=== PATIENT | male | born 1945 | race Two or more races ===

== ENCOUNTER 2022-06-30 11:40 | Emergency (ER) | payer BC, OTHER ==
[~2022-06-30] VITALS: Ht 167.6 cm; Wt 80.0 kg
[2022-06-30 13:09] LABS: Basophils # (auto) 0 10 ^3/uL (0-0.2); Basophils % (auto) 0.4 % (0.0-2.0); Eosinophils # (auto) 0.4 10 ^3/uL (0-0.8); Eosinophils % (auto) 5.5 % (0.0-7.0); Hematocrit 41.2 % (41.0-53.0); Hemoglobin 13.9 g/dL (13.5-17.5); Lymphocytes % (auto) 27.9 % (10.0-50.0); Mean Corpuscular Hemoglobin 31.4 pg (28.0-32.0); Mean Corpuscular Hgb Conc. 33.8 g/dL (32.0-36.0); Mean Corpuscular Volume 92.9 fL (80.0-100.0); Monocytes # (auto) 0.5 10 ^3/uL (0-1.3); Monocytes % (auto) 7.6 % (0.0-12.0); Neutrophils # (auto) 4.2 10 ^3/uL (1.6-8.6); Neutrophils % (auto) 58.6 % (37.0-80.0); Nucleated Red Blood Cells % 0.2 %; Red Blood Cells 4.43 10^6/uL (4.5-5.90); White Blood Cell 7.2 10^3/uL (4.4-10.8)
[2022-06-30 13:22] LABS: Potassium 4.5 mmol/L (3.5-5.1)
[2022-06-30 13:29] LABS: Albumin 3.5 g/dL (3.4-5.0); BUN/Creatinine Ratio 17.8 (10.0-20.0); Bilirubin, Total 0.4 mg/dL (0.2-1.0); Calcium 8.8 mg/dL (8.5-10.1); Total Protein 6.6 g/dL (6.4-8.2)
[2022-06-30 15:41] LABS: Urine Bacteria NONE SEEN /hpf (None Seen); Urine Blood Negative /uL (Negative); Urine Mucus FEW (None Seen); Urine Specific Gravity 1.027 (1.001-1.035); Urine WBC <1 /hpf (0 - 3)
[2022-06-30] MEDS ORDERED: BENZ100C19 PO (16:16)
[2022-06-30] MEDS ORDERED: LORA10CA7 PO (16:16)
[2022-06-30 16:29] VITALS: BP 140/58
== END 2022-06-30 16:30 | disposition home or self-care (01) ==
LOC: ER 11:40
DX: J06.9 Acute upper respiratory infection, unspecified (principal); B97.89 Other viral agents as the cause of diseases classified elsewhere; E11.9 Type 2 diabetes mellitus without complications; E78.5 Hyperlipidemia, unspecified; Z20.822 Contact with and (suspected) exposure to COVID-19
CPT/HCPCS: 36415; 71046; 80053; 81001; 83880; 84484; 85025; 85379; 87070; 87426; 87880

== ENCOUNTER → 2022-11-28 | Outpatient (CLI) | payer BC ==
[~2022-11-28] MED LIST: BENZ100C19 PO; LORA10CA PO
[2022-11-28 08:17] LABS: Basophils # (auto) 0 10 ^3/uL (0-0.2); Basophils % (auto) 0.7 % (0.0-2.0); Eosinophils # (auto) 0.8 10 ^3/uL (0-0.8); Eosinophils % (auto) 14.2 % (0.0-7.0); Hematocrit 43.4 % (41.0-53.0); Hemoglobin 14.7 g/dL (13.5-17.5); Lymphocytes # (auto) 2.2 10 ^3/uL (0.4-5.4); Lymphocytes % (auto) 36.3 % (10.0-50.0); Mean Corpuscular Hemoglobin 31.6 pg (28.0-32.0); Mean Corpuscular Hgb Conc. 33.9 g/dL (32.0-36.0); Mean Corpuscular Volume 93.2 fL (80.0-100.0); Monocytes # (auto) 0.4 10 ^3/uL (0-1.3); Neutrophils # (auto) 2.5 10 ^3/uL (1.6-8.6); Neutrophils % (auto) 41.8 % (37.0-80.0); Nucleated Red Blood Cells % 0.1 %; Red Blood Cells 4.65 10^6/uL (4.5-5.90); Red Cell Distribution Width 14.1 % (11.8-14.3)
[2022-11-28 08:45] LABS: Alanine Aminotransferase 36 U/L (7-40); Albumin 4.5 g/dL (3.2-4.8); Alkaline Phosphatase 72 U/L (46-116); Anion Gap 5 (5-15); Aspartate Aminotransferase 33 U/L (13-40); BUN/Creatinine Ratio 14.3 (10.0-20.0); Blood Urea Nitrogen 15 mg/dL (9-23); Calcium 9.8 mg/dL (8.5-10.1); Carbon Dioxide 28 mmol/L (20-30); Chloride 109 mmol/L (98-107); Glucose 133 mg/dL (74-106); LDL Cholesterol 71 mg/dL (< 100); Potassium 4.4 mmol/L (3.5-5.1); Sodium 142 mmol/L (136-145); Triglycerides 107 mg/dL (< 150)
[2022-11-28 08:46] LABS: Bilirubin, Total 1.2 mg/dL (0.2-1.0); Cholesterol 139 mg/dL (< 200); HDL Cholesterol 45 mg/dL (40-59); Total Protein 7.5 g/dL (5.7-8.2)
[2022-11-28 10:27] LABS: Free T4 (Free Thyroxine) 0.98 ng/dL (0.89-1.76)
[2022-11-28 10:34] LABS: Prostate Specific Antigen 0.26 ng/mL (0.0-4.0)
== END | disposition home or self-care (01) ==
LOC: LAB 08:04
PROVIDERS: ATTEND Internal Medicine
DX: Z00.01 Encounter for general adult medical examination with abnormal findings (principal); Z12.5 Encounter for screening for malignant neoplasm of prostate; R73.03 Prediabetes; E78.5 Hyperlipidemia, unspecified; E55.9 Vitamin D deficiency, unspecified
CPT/HCPCS: 36415; 80053; 80061; 82306; 84153; 84439; 84443; 85025

== ENCOUNTER → 2022-12-08 | Outpatient (CLI) | payer BC | END | disposition home or self-care (01) | LOC: LAB 14:08 | PROVIDERS: ATTEND Internal Medicine | DX: R73.03 Prediabetes (principal) | CPT/HCPCS: 36415; 83036 ==

== ENCOUNTER → 2023-02-10 | Outpatient (CLI) | payer BC | END | disposition home or self-care (01) | LOC: LAB 10:30 | PROVIDERS: ATTEND Family Medicine | DX: L82.1 Other seborrheic keratosis (principal) | CPT/HCPCS: 88302 ==

== ENCOUNTER → 2023-04-21 | Outpatient (CLI) | payer BC | END | disposition home or self-care (01) | LOC: XYW 08:30 | PROVIDERS: ATTEND Student in an Organized Health Care Education/Training Program | DX: I51.89 Other ill-defined heart diseases (principal); R06.02 Shortness of breath | CPT/HCPCS: 93306 ==

== ENCOUNTER → 2023-05-15 | Outpatient (CLI) | payer BC ==
[~2023-05-15] VITALS: Ht 167.6 cm; Wt 84.4 kg
[2023-05-15] MEDS: ADENOSINE 71 MG in GIVE UN-DILUTED 0 ML IV ONE (14:35)
== END | disposition home or self-care (01) ==
LOC: XYW 13:28
PROVIDERS: ATTEND Student in an Organized Health Care Education/Training Program
DX: R06.02 Shortness of breath (principal); R07.89 Other chest pain; E78.5 Hyperlipidemia, unspecified
CPT/HCPCS: 78452; 93017; A9500; J0153

== ENCOUNTER 2023-06-13 10:52 | Emergency (ER) | payer BC ==
[~2023-06-13] VITALS: Ht 167.6 cm; Wt 84.9 kg
[2023-06-13 14:11] LABS: Basophils # (auto) 0 10 ^3/uL (0-0.2); Basophils % (auto) 0.6 % (0.0-2.0); Eosinophils # (auto) 0.4 10 ^3/uL (0-0.8); Eosinophils % (auto) 6.1 % (0.0-7.0); Hematocrit 41.8 % (41.0-53.0); Mean Corpuscular Hemoglobin 31.9 pg (28.0-32.0); Mean Corpuscular Hgb Conc. 33.5 g/dL (32.0-36.0); Monocytes # (auto) 0.4 10 ^3/uL (0-1.3); Monocytes % (auto) 6.8 % (0.0-12.0); Neutrophils % (auto) 51.5 % (37.0-80.0); Nucleated Red Blood Cells % 0.3 %; Red Blood Cells 4.39 10^6/uL (4.5-5.90); Red Cell Distribution Width 14.1 % (11.8-14.3); White Blood Cell 5.8 10^3/uL (4.4-10.8)
[2023-06-13 14:26] LABS: Alanine Aminotransferase 22 U/L (7-40); Albumin 4.3 g/dL (3.2-4.8); Alkaline Phosphatase 75 U/L (46-116); Anion Gap 6 (5-15); Aspartate Aminotransferase 25 U/L (13-40); BUN/Creatinine Ratio 25.3 (10.0-20.0); Blood Urea Nitrogen 25 mg/dL (9-23); Calcium 9.4 mg/dL (8.5-10.1); Carbon Dioxide 25 mmol/L (20-30); Chloride 108 mmol/L (98-107); Glucose 102 mg/dL (74-106); Potassium 4.9 mmol/L (3.5-5.1); Sodium 139 mmol/L (136-145)
[2023-06-13 14:27] LABS: Bilirubin, Total 0.8 mg/dL (0.2-1.0)
[2023-06-13] MEDS: IOHEXOL 350 MG/ML 100ML IJ ONE (18:48)
[2023-06-13] MEDS ORDERED: ACET500T58 PO (19:06)
[2023-06-13] MEDS ORDERED: DOXY100C4 PO (19:50)
[2023-06-13 19:53] VITALS: BP 146/79; PULSE 67; RESP 16; TEMP 97.6; O2SAT 98
== END 2023-06-13 19:53 | disposition home or self-care (01) ==
LOC: ER 10:52
DX: L03.116 Cellulitis of left lower limb (principal); E11.9 Type 2 diabetes mellitus without complications; E78.5 Hyperlipidemia, unspecified; Z79.899 Other long term (current) drug therapy
CPT/HCPCS: 36415; 71045; 71275; 80053; 83605; 84484; 85025; 85379; 87040; 93970; 99285; Q9967

== ENCOUNTER 2023-07-07 14:24 | Inpatient (IN) | payer BC ==
[~2023-07-07] VITALS: Ht 167.6 cm; Wt 86.1 kg
[~2023-07-07 14:24] MED LIST changes: +ACET500T58 PO; +DOXY100C4 PO
[2023-07-07 15:01] LABS: Basophils # (auto) 0 10 ^3/uL (0-0.2); Basophils % (auto) 0.2 % (0.0-2.0); Eosinophils # (auto) 0.2 10 ^3/uL (0-0.8); Eosinophils % (auto) 3.5 % (0.0-7.0); Hematocrit 36.8 % (41.0-53.0); Hemoglobin 12.2 g/dL (13.5-17.5); Lymphocytes # (auto) 1.3 10 ^3/uL (0.4-5.4); Lymphocytes % (auto) 24.5 % (10.0-50.0); Mean Corpuscular Hemoglobin 30.9 pg (28.0-32.0); Mean Corpuscular Hgb Conc. 33.3 g/dL (32.0-36.0); Mean Corpuscular Volume 92.8 fL (80.0-100.0); Monocytes # (auto) 0.5 10 ^3/uL (0-1.3); Monocytes % (auto) 9.6 % (0.0-12.0); Neutrophils # (auto) 3.4 10 ^3/uL (1.6-8.6); Neutrophils % (auto) 62.2 % (37.0-80.0); Nucleated Red Blood Cells % 0.1 %; Red Blood Cells 3.96 10^6/uL (4.5-5.90); Red Cell Distribution Width 13.9 % (11.8-14.3); White Blood Cell 5.4 10^3/uL (4.4-10.8)
[2023-07-07 15:15] VITALS: PULSE 50; RESP 15; O2SAT 96
[2023-07-07 15:19] LABS: Alanine Aminotransferase 24 U/L (7-40); Albumin 3.3 g/dL (3.2-4.8); Alkaline Phosphatase 67 U/L (46-116); Anion Gap 7 (5-15); Aspartate Aminotransferase 20 U/L (13-40); BUN/Creatinine Ratio 15.4 (10.0-20.0); Bilirubin, Total 0.7 mg/dL (0.2-1.0); Blood Urea Nitrogen 21 mg/dL (9-23); Calcium 8.8 mg/dL (8.7-10.4); Carbon Dioxide 26 mmol/L (20-30); Chloride 112 mmol/L (98-107); Glucose 145 mg/dL (74-106); Lipase 43 U/L (12-53); Potassium 4.1 mmol/L (3.5-5.1); Sodium 145 mmol/L (136-145); Total Protein 5.6 g/dL (5.7-8.2)
[2023-07-07] MEDS ORDERED: HYDROcodone-ACET 5/325MG TAB PO PRN (23:45)
[2023-07-07] MEDS ORDERED: MORPHINE SULFATE INJ 2 MG/ml SYRG IV PRN (23:45)
[2023-07-07] MEDS ORDERED: DOCUSATE SOD 100 MG CAP PO PRN (23:45)
[2023-07-07] MEDS ORDERED: DEXTROSE (50%) 50ML SYRG IV PRN (23:45)
[2023-07-07] MEDS ORDERED: NITROGLYCERIN 0.4 MG SL TAB SL PRN (23:45)
[2023-07-07] MEDS ORDERED: ONDANSETRON HCL 4 MG/2 ML VIAL IV PRN (23:45)
[2023-07-08] VITALS (8 sets, daily range): BP systolic 104–150; BP diastolic 54–84; PULSE 45–68; RESP 16–20; TEMP 97.2–98.6; O2SAT 95–98
[2023-07-08 02:47] LABS: Urine Bacteria None Seen /hpf (None Seen)
[2023-07-08 03:08] LABS: Urine Blood Negative /uL (Negative); Urine Clarity Clear (Clear); Urine Color Yellow (Yellow); Urine Hyaline Cast FEW /lpf (0 - 2); Urine Mucus FEW (None Seen); Urine Protein, UAD TRACE (Negative); Urine Specific Gravity 1.024 (1.001-1.035); Urine Urobilinogen Normal (Negative); Urine WBC 1 /hpf (0 - 3); Urine pH 5.5 (5.0-9.0)
[2023-07-08] MEDS: ACCU-CHEK COMFORT CURVE STRIP VI SCH (05:48)
[2023-07-08] MEDS: SODIUM CHLOR 0.9% PF (SALINE LOCK) 10ML VIAL/SYR IV SCH (05:50)
[2023-07-08] MEDS: InsuLIN REG 1unit/0.01ml Soln (100units/ml) SC SCH ×2 (05:51→20:44)
[2023-07-08 08:54] LABS: Basophils # (auto) 0 10 ^3/uL (0-0.2); Basophils % (auto) 0.5 % (0.0-2.0); Eosinophils # (auto) 0.2 10 ^3/uL (0-0.8); Hematocrit 39.1 % (41.0-53.0); Lymphocytes # (auto) 1.8 10 ^3/uL (0.4-5.4); Lymphocytes % (auto) 29.2 % (10.0-50.0); Mean Corpuscular Hemoglobin 31.1 pg (28.0-32.0); Mean Corpuscular Hgb Conc. 33.2 g/dL (32.0-36.0); Mean Corpuscular Volume 93.8 fL (80.0-100.0); Monocytes # (auto) 0.5 10 ^3/uL (0-1.3); Monocytes % (auto) 7.9 % (0.0-12.0); Neutrophils # (auto) 3.6 10 ^3/uL (1.6-8.6); Neutrophils % (auto) 59.4 % (37.0-80.0); Red Blood Cells 4.17 10^6/uL (4.5-5.90); Red Cell Distribution Width 13.9 % (11.8-14.3); White Blood Cell 6.1 10^3/uL (4.4-10.8)
[2023-07-08 09:12] LABS: Alanine Aminotransferase 17 U/L (7-40); Alkaline Phosphatase 74 U/L (46-116); Anion Gap 5 (5-15); Aspartate Aminotransferase 16 U/L (13-40); BUN/Creatinine Ratio 14.2 (10.0-20.0); Blood Urea Nitrogen 15 mg/dL (9-23); Calcium 9.6 mg/dL (8.5-10.1); Carbon Dioxide 28 mmol/L (20-30); Chloride 109 mmol/L (98-107); Glucose 137 mg/dL (74-106); Potassium 4.2 mmol/L (3.5-5.1); Sodium 142 mmol/L (136-145)
[2023-07-08 09:13] LABS: Albumin 3.9 g/dL (3.2-4.8); Total Protein 6.4 g/dL (5.7-8.2)
[2023-07-08] MEDS: ASPirin 81 mg TAB PO SCH (09:23)
[2023-07-08 11:25] LABS: Magnesium 1.7 mg/dL (1.6-2.6)
[2023-07-08] MEDS: ACETAMINOPHEN 325 MG TAB PO PRN (13:03)
[2023-07-08] MEDS: ATORVASTATIN 20 MG TAB PO SCH (20:32)
[2023-07-08] MEDS: MAGNESIUM SULFATE 1GM/100ML 100 ML IV ONE (20:38)
[2023-07-09] VITALS (7 sets, daily range): BP systolic 101–144; BP diastolic 60–79; PULSE 50–81; RESP 16–20; TEMP 97.8–98.7; O2SAT 94–96
[2023-07-09] MEDS: ENOXAPARIN SOD 40 MG/0.4 ML SYRINGE SC SCH (09:41)
[2023-07-10] VITALS (11 sets, daily range): BP systolic 0–149; BP diastolic 60–72; PULSE 20–64; RESP 15–18; TEMP 97.3–98.3; O2SAT 94–95
[2023-07-10 06:50] LABS: Basophils # (auto) 0 10 ^3/uL (0-0.2); Basophils % (auto) 0.6 % (0.0-2.0); Eosinophils # (auto) 0.3 10 ^3/uL (0-0.8); Eosinophils % (auto) 4.9 % (0.0-7.0); Hematocrit 38.8 % (41.0-53.0); Lymphocytes # (auto) 2.5 10 ^3/uL (0.4-5.4); Lymphocytes % (auto) 36.8 % (10.0-50.0); Mean Corpuscular Hemoglobin 31.7 pg (28.0-32.0); Mean Corpuscular Hgb Conc. 33.5 g/dL (32.0-36.0); Mean Corpuscular Volume 94.6 fL (80.0-100.0); Monocytes # (auto) 0.6 10 ^3/uL (0-1.3); Monocytes % (auto) 8.5 % (0.0-12.0); Neutrophils # (auto) 3.4 10 ^3/uL (1.6-8.6); Neutrophils % (auto) 49.2 % (37.0-80.0); Nucleated Red Blood Cells % 0.5 %; White Blood Cell 6.9 10^3/uL (4.4-10.8)
[2023-07-10 07:22] LABS: INR 1.06 (0.9-1.15); Prothrombin Time 11.2 sec (9.3-11.8)
[2023-07-10 07:36] LABS: Chloride 108 mmol/L (98-107); Potassium 4.4 mmol/L (3.5-5.1); Sodium 141 mmol/L (136-145)
[2023-07-10 07:37] LABS: Anion Gap 7 (5-15); Calcium 9.5 mg/dL (8.5-10.1); Carbon Dioxide 26 mmol/L (20-30)
[2023-07-10 07:42] LABS: BUN/Creatinine Ratio 15.7 (10.0-20.0); Blood Urea Nitrogen 16 mg/dL (9-23); Glucose 107 mg/dL (74-106)
[2023-07-10] MEDS: LIDOCAINE 2%HCL (LOCAL ANESTH.) INJ 20ML MDV ONE ×2 (14:53→15:34)
[2023-07-10] MEDS: VERAPAMIL 2.5MG/ML INJ 2ML VIAL IV ONE (15:33)
[2023-07-10] MEDS: ANGIOMAX 250 MG VIAL IV ONE (15:33)
[2023-07-10] MEDS: SODIUM CHL 0.9% 0 ML ONE (15:33)
[2023-07-10] MEDS: MIDAZOLAM HCL 2MG/2ML 2ml VIAL (1mg/ml) ONE (15:33)
[2023-07-10] MEDS: fentaNYL CITRATE 100 MCG/2 ML VL ONE (15:33)
[2023-07-10 18:14] LABS: Basophils # (auto) 0 10 ^3/uL (0-0.2); Basophils % (auto) 0.3 % (0.0-2.0); Eosinophils # (auto) 0.2 10 ^3/uL (0-0.8); Hematocrit 40.6 % (41.0-53.0); Hemoglobin 13.4 g/dL (13.5-17.5); Lymphocytes # (auto) 2.1 10 ^3/uL (0.4-5.4); Lymphocytes % (auto) 29.9 % (10.0-50.0); Mean Corpuscular Hemoglobin 30.9 pg (28.0-32.0); Mean Corpuscular Volume 93.7 fL (80.0-100.0); Monocytes # (auto) 0.6 10 ^3/uL (0-1.3); Monocytes % (auto) 8.7 % (0.0-12.0); Neutrophils # (auto) 4.1 10 ^3/uL (1.6-8.6); Neutrophils % (auto) 58.1 % (37.0-80.0); Nucleated Red Blood Cells % 0.1 %; Red Blood Cells 4.33 10^6/uL (4.5-5.90); Red Cell Distribution Width 13.9 % (11.8-14.3); White Blood Cell 7.1 10^3/uL (4.4-10.8)
[2023-07-10] MEDS: HEPARIN DRIP/D5W 100UNITS/ML 250 ML IV SCH (18:17)
[2023-07-10 18:45] LABS: INR 1.07 (0.9-1.15); Partial Thromboplastin Time 26.2 SEC (24.5-34.5); Prothrombin Time 11.3 sec (9.3-11.8)
[2023-07-10] MEDS: SODIUM CHLORIDE 0.9% 1,000 ML IV SCH (20:22)
[2023-07-11] VITALS (7 sets, daily range): BP systolic 108–142; BP diastolic 60–75; PULSE 0–56; RESP 16; TEMP 97.1–98.8; O2SAT 95–100
[2023-07-11 00:49] LABS: INR 1.11 (0.9-1.15); Partial Thromboplastin Time 51.1 SEC (24.5-34.5); Prothrombin Time 11.7 sec (9.3-11.8)
[2023-07-11 07:07] LABS: INR 1.12 (0.9-1.15); Partial Thromboplastin Time 65.5 SEC (24.5-34.5); Prothrombin Time 11.8 sec (9.3-11.8)
[2023-07-11 13:23] LABS: INR 1.11 (0.9-1.15); Prothrombin Time 11.7 sec (9.3-11.8)
[2023-07-11 13:34] LABS: Partial Thromboplastin Time 79.9 SEC (24.5-34.5)
[2023-07-11] MEDS ORDERED: CLOP75TA28 PO (16:32)
[2023-07-11] MEDS ORDERED: ASPI-325 PO (16:32)
[2023-07-11] MEDS ORDERED: ATOR20TA50 PO (16:33)
[2023-07-11] MEDS ORDERED: LISI-275 PO (16:33)
[2023-07-11] MEDS: HEPARIN DRIP/D5W 100UNITS/ML 250 ML IV SCH (16:34)
== END 2023-07-11 18:34 | disposition home or self-care (01) | DRG 286 ==
LOC: EDBD 14:24 → ER 14:24 → TELE 23:44 → TELE-WESTW 07-08 02:24
PROVIDERS: ADMIT Internal Medicine; ATTEND Internal Medicine
PROC: 4A023N7 Measurement of Cardiac Sampling and Pressure, Left Heart, Percutaneous Approach (ICD-10-PCS; principal; 2023-07-10)
PROC: B2111ZZ Fluoroscopy of Multiple Coronary Arteries using Low Osmolar Contrast (ICD-10-PCS; 2023-07-10)
DX: R00.1 Bradycardia, unspecified (principal); G93.41 Metabolic encephalopathy; I95.1 Orthostatic hypotension; E78.5 Hyperlipidemia, unspecified; K21.9 Gastro-esophageal reflux disease without esophagitis; E11.9 Type 2 diabetes mellitus without complications; I25.10 Atherosclerotic heart disease of native coronary artery without angina pectoris; Z82.49 Family history of ischemic heart disease and other diseases of the circulatory system; Z82.3 Family history of stroke; Z79.4 Long term (current) use of insulin; Z79.899 Other long term (current) drug therapy
CPT/HCPCS: 36415; 70450; 71045; 80048; 80053; 80061; 81001; 82962; 83036; 83605; 83690; 83735; 83880; 84443; 84484; 85025; 85610; 85730; 86850; 86900; 86901; 93005; 93306; 96365; 99152; G0378; J1815; J2250

== ENCOUNTER → 2023-07-13 | Outpatient (CLI) | payer BC ==
[~2023-07-13] MED LIST changes: -ACET500T58 PO; +ASPI-325 PO; +ATOR20TA50 PO; -BENZ100C19 PO; +CLOP75TA28 PO; -DOXY100C4 PO; +LISI-275 PO; -LORA10CA PO
== END | disposition home or self-care (01) ==
LOC: LAB 07:41
PROVIDERS: ATTEND Internal Medicine
DX: R55 Syncope and collapse (principal); E27.40 Unspecified adrenocortical insufficiency
CPT/HCPCS: 82533

== ENCOUNTER → 2023-09-12 | Outpatient (CLI) | payer BC ==
[2023-09-12 08:23] LABS: Urine Bacteria None Seen /hpf (None Seen)
[2023-09-12 09:05] LABS: Urine Blood Negative /uL (Negative); Urine Clarity Clear (Clear); Urine Color Yellow (Yellow); Urine Hyaline Cast MANY /lpf (0 - 2); Urine Mucus FEW (None Seen); Urine Protein, UAD TRACE (Negative); Urine Urobilinogen Normal (Negative); Urine WBC 1 /hpf (0 - 3); Urine pH 5.5 (5.0-9.0)
[2023-09-12 09:08] LABS: Basophils # (auto) 0 10 ^3/uL (0-0.2); Basophils % (auto) 0.5 % (0.0-2.0); Eosinophils # (auto) 0.3 10 ^3/uL (0-0.8); Eosinophils % (auto) 5.9 % (0.0-7.0); Hematocrit 39.5 % (41.0-53.0); Hemoglobin 13.8 g/dL (13.5-17.5); Lymphocytes # (auto) 2.2 10 ^3/uL (0.4-5.4); Lymphocytes % (auto) 37.5 % (10.0-50.0); Mean Corpuscular Hemoglobin 32.4 pg (28.0-32.0); Mean Corpuscular Volume 92.6 fL (80.0-100.0); Monocytes # (auto) 0.4 10 ^3/uL (0-1.3); Monocytes % (auto) 7.6 % (0.0-12.0); Neutrophils # (auto) 2.9 10 ^3/uL (1.6-8.6); Neutrophils % (auto) 48.5 % (37.0-80.0); Nucleated Red Blood Cells % 0.1 %; Red Blood Cells 4.27 10^6/uL (4.5-5.90); Red Cell Distribution Width 14.1 % (11.8-14.3); White Blood Cell 5.9 10^3/uL (4.4-10.8)
[2023-09-12 09:18] LABS: Alanine Aminotransferase 35 U/L (7-40); Alkaline Phosphatase 81 U/L (46-116); Anion Gap 6 (5-15); BUN/Creatinine Ratio 11.4 (10.0-20.0); Blood Urea Nitrogen 12 mg/dL (9-23); Calcium 9.6 mg/dL (8.7-10.4); Carbon Dioxide 25 mmol/L (20-30); Chloride 107 mmol/L (98-107); Glucose 121 mg/dL (74-106); LDL Cholesterol 47 mg/dL (< 100); Potassium 4.2 mmol/L (3.5-5.1); Sodium 138 mmol/L (136-145); Triglycerides 76 mg/dL (< 150)
[2023-09-12 09:19] LABS: Aspartate Aminotransferase 19 U/L (13-40); Cholesterol 104 mg/dL (< 200); HDL Cholesterol 46 mg/dL (40-59)
[2023-09-12 09:20] LABS: Total Protein 6.6 g/dL (5.7-8.2)
[2023-09-12 10:50] LABS: Prostate Specific Antigen 0.24 ng/mL (0.0-4.0)
[2023-09-12 10:56] LABS: Free T4 (Free Thyroxine) 1.02 ng/dL (0.89-1.76)
== END | disposition home or self-care (01) ==
LOC: LAB 08:12
PROVIDERS: ATTEND Internal Medicine
DX: Z12.5 Encounter for screening for malignant neoplasm of prostate (principal); Z29.9 Encounter for prophylactic measures, unspecified; Z00.01 Encounter for general adult medical examination with abnormal findings; E55.9 Vitamin D deficiency, unspecified; E11.42 Type 2 diabetes mellitus with diabetic polyneuropathy; E11.69 Type 2 diabetes mellitus with other specified complication; E78.5 Hyperlipidemia, unspecified; E66.9 Obesity, unspecified
CPT/HCPCS: 36415; 80053; 80061; 81001; 82306; 83036; 84153; 84439; 84443; 85025

== ENCOUNTER → 2023-11-20 | Outpatient (CLI) | payer BC | END | disposition home or self-care (01) | LOC: Rad HDHVI 08:57 | PROVIDERS: ATTEND Internal Medicine Cardiovascular Disease | DX: I51.89 Other ill-defined heart diseases (principal); R07.89 Other chest pain; R55 Syncope and collapse | CPT/HCPCS: 93306 ==

== ENCOUNTER → 2023-11-22 | Outpatient (CLI) | payer BC | END | disposition home or self-care (01) | LOC: Rad HDHVI 10:53 | PROVIDERS: ATTEND Internal Medicine Cardiovascular Disease | DX: I10 Essential (primary) hypertension (principal) | CPT/HCPCS: 93880 ==

== ENCOUNTER → 2023-11-24 | Outpatient (CLI) | payer BC ==
[~2023-11-24] VITALS: Ht 167.6 cm; Wt 83.0 kg
[~2023-11-24] MED LIST changes: +ADENOSINE 70 MG in GIVE UN-DILUTED 0 ML IV ONE; +ADENOSINE 90 MG/30 ML INJ IV ONE
== END | disposition home or self-care (01) ==
LOC: Rad HDHVI 09:18
PROVIDERS: ATTEND Internal Medicine Cardiovascular Disease
DX: I11.0 Hypertensive heart disease with heart failure (principal); I50.32 Chronic diastolic (congestive) heart failure; I25.10 Atherosclerotic heart disease of native coronary artery without angina pectoris; R55 Syncope and collapse; R42 Dizziness and giddiness; E11.21 Type 2 diabetes mellitus with diabetic nephropathy; E78.5 Hyperlipidemia, unspecified; R07.89 Other chest pain
CPT/HCPCS: 78452; 93005; 96374; 96375; A9500; J0153

== ENCOUNTER 2024-01-09 12:43 | Day surgery (SDC) | payer BC ==
[2024-01-08 13:58] LABS: Basophils # (auto) 0 10 ^3/uL (0-0.2); Basophils % (auto) 0.6 % (0.0-2.0); Eosinophils # (auto) 0.4 10 ^3/uL (0-0.8); Eosinophils % (auto) 6.3 % (0.0-7.0); Hematocrit 39.3 % (41.0-53.0); Hemoglobin 13.3 g/dL (13.5-17.5); Lymphocytes % (auto) 31.1 % (10.0-50.0); Mean Corpuscular Hemoglobin 32.1 pg (28.0-32.0); Mean Corpuscular Hgb Conc. 33.9 g/dL (32.0-36.0); Mean Corpuscular Volume 94.9 fL (80.0-100.0); Monocytes # (auto) 0.5 10 ^3/uL (0-1.3); Monocytes % (auto) 8.3 % (0.0-12.0); Neutrophils # (auto) 3.4 10 ^3/uL (1.6-8.6); Neutrophils % (auto) 53.7 % (37.0-80.0); Nucleated Red Blood Cells % 0.2 %; Platelet Count (auto) 169 10^3/uL (140-450); Red Blood Cells 4.13 10^6/uL (4.5-5.90); Red Cell Distribution Width 14.7 % (11.8-14.3); White Blood Cell 6.3 10^3/uL (4.4-10.8)
[2024-01-08 14:14] LABS: INR 1.06 (0.9-1.15); Partial Thromboplastin Time 25.9 SEC (24.5-34.5); Prothrombin Time 11.2 sec (9.3-11.8)
[2024-01-08 14:17] LABS: Chloride 109 mmol/L (98-107); Potassium 4.6 mmol/L (3.5-5.1); Sodium 141 mmol/L (136-145)
[2024-01-08 14:18] LABS: Anion Gap 4 (5-15); Calcium 9.9 mg/dL (8.7-10.4); Carbon Dioxide 28 mmol/L (20-31)
[2024-01-08 14:23] LABS: BUN/Creatinine Ratio 13.4 (10.0-20.0); Blood Urea Nitrogen 17 mg/dL (9-23); Glucose 113 mg/dL (74-106)
[~2024-01-09] VITALS: Ht 167.6 cm; Wt 84.4 kg
[~2024-01-09 12:43] MED LIST changes: -ADENOSINE 70 MG in GIVE UN-DILUTED 0 ML IV ONE; -ADENOSINE 90 MG/30 ML INJ IV ONE; -ATOR20TA50 PO; -CLOP75TA28 PO; -LISI-275 PO; +METF-370 PO; +PANT40T PO
[2024-01-09] MEDS ORDERED: fentaNYL CITRATE 100 MCG/2 ML VL ONE (14:38)
[2024-01-09] MEDS ORDERED: VANCOMYCIN HCL 1000 MG VL ONE (14:38)
[2024-01-09] MEDS ORDERED: VANCOMYCIN 1GM/200ML PREMIX 200 ML IV ONE (14:39)
[2024-01-09] MEDS ORDERED: MIDAZOLAM HCL 2MG/2ML 2ml VIAL (1mg/ml) ONE (14:39)
[2024-01-09] MEDS ORDERED: LIDOCAINE 2%HCL (LOCAL ANESTH.) INJ 20ML MDV ONE ×2 (14:39→14:57)
--- NOTE | 2024-01-09 16:03 | DVH ---
CHEST RADIOGRAPH Indication:S/P PACEMAKER Technique: Single frontal view of the chest was obtained Comparison: XY CHEST PORTABLE on DOS: 07/07/23, XY CHEST PORTABLE on DOS: 06/13/23 FINDINGS: Lines and Tubes: Bipolar pacemaker in place with pulse generator over the left chest. Lungs: No focal consolidation. Pleura: No effusion. No pneumothorax. Cardiomediastinal contours: Unremarkable Bones: No acute osseous abnormality. IMPRESSION: 1. Bipolar pacemaker in place with pulse generator over the left chest. 2. No pneumothorax..
--- NOTE | 2024-01-09 18:26 | ECG ---
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
--- NOTE | 2024-01-19 15:25 | DVHOP ---
DATE OF SURGERY: 01/09/2024 PROCEDURE TO BE PERFORMED: * Dual-chamber permanent pacemaker. * Venography. * Conscious sedation. DESCRIPTION OF PROCEDURE: The patient was prepped and draped under sterile condition. Xylocaine 1% used to anesthetize the left subclavicular region. Using Cook needle, the left subclavian vein was engaged via Seldinger technique. Guidewire was then appropriately positioned. Using a #10 blade, linear incision was made. Using blunt dissection and electrocautery, pocket was then dissected out. Then, using a 9-Uzbek peel-away sheath, the right ventricular active fixation lead then appropriately positioned. Then, using a 7-Uzbek peel-away sheath, right atrial active fixation lead then appropriately positioned. Threshold parameters obtained. Lead was secured to the chest wall using 0 Ethibond. Then, the permanent pacemaker generator was implanted. Pocket was irrigated using vancomycin saline solution. Pocket was closed using 3-0 Monoderm subcutaneous sutures followed by 3-0 Monoderm subcuticular sutures. There were no complications. The patient tolerated the procedure well. RESULTS: The patient had Biotronik MRI-compatible dual-chamber permanent pacemaker. 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 Right atrial lead is Solia 45. The right ventricular lead is Solia 53. Threshold parameters: P-wave amplitude of 3.0 millivolts, threshold of 1.2 volts at 0.4 milliseconds pulse duration, pacing impedance of 496 ohms. Right ventricular lead, R-wave amplitude of 14.8 millivolts, threshold of 0.7 volts at 0.4 milliseconds pulse duration, pacing impedance of 632 ohms. 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 Abilio Montoya MD SA/KIERRA/KEISHA TID: [id number] RECEIPT: [id number]
== END 2024-01-09 17:20 | disposition home or self-care (01) ==
LOC: CATH 12:43
PROVIDERS: ATTEND Internal Medicine Cardiovascular Disease
DX: I44.30 Unspecified atrioventricular block (principal); I10 Essential (primary) hypertension; R07.9 Chest pain, unspecified; R06.02 Shortness of breath; Z79.82 Long term (current) use of aspirin; Z79.899 Other long term (current) drug therapy
CPT/HCPCS: 33208; 36415; 71045; 80048; 85025; 85610; 85730; 93005; C1785; C1898; J2250; J3010; J3370; 99152; 99153

== ENCOUNTER → 2024-01-10 | Outpatient (CLI) | payer BC ==
--- NOTE | 2024-01-10 10:36 | DVH ---
XY CHEST TWO VIEWS ROUTINE CLINICAL HISTORY: POST OP SOB COMPARISON: XY CHEST TWO VIEWS ROUTINE on DOS: 01/08/24, XY CHEST TWO VIEWS ROUTINE on DOS: 06/30/22 TECHNIQUE: Frontal and lateral view of the chest was obtained FINDINGS: Lines and Tubes: Left sided cardiac pacemaker. Lungs: No focal consolidation. Pleura: No effusion. No apapreciable pneumothorax. Cardiomediastinal contours: Unremarkable Bones: No acute osseous abnormality. IMPRESSION: 1. Left chest pacemaker. No appreciable pneumothorax. HS:Y
== END | disposition home or self-care (01) ==
LOC: Rad HDHVI 09:39
PROVIDERS: ATTEND Internal Medicine Cardiovascular Disease
DX: R06.02 Shortness of breath (principal); Z95.0 Presence of cardiac pacemaker
CPT/HCPCS: 71046

== ENCOUNTER → 2024-02-01 | Outpatient (CLI) | payer BC ==
--- NOTE | 2024-02-01 12:23 | DVHSR ---
APPROVED REPORT EXAM: Two-dimensional and M-mode echocardiogram with Doppler and color Doppler. DIMENSIONS LVDd5.2 (3.8-5.7cm)LA (2D)4.0 (1.9-4.0cm)Aortic Root3.4 (2.0-3.7cm) LVDs4.1 (2.5-4.0cm)LA (MM) (1.9-4.0cm)Aortic Cusp Exc1.5 (1.5-2.0cm) EF (%) 44.5 (55-70%)Rt. Atrium4.1 (1.9-4.0cm)Asc. Aorta cm IVSd1.4 (0.7-1.1cm)RV (D)3.5 (1.8-2.4cm) PWd1.4 (0.7-1.1cm) Mitral Valve MitralMitral Stenosis E wave0.48m/sMV Mean GR.mmHg A wave0.92m/sMV Peak GR.mmHg E/A ratio0.52D MVAcm2 DECEL [id number] 1/2 Timems Aortic Valve Aortic ValveAortic Stenosis V11.06m/Axel Mean GR.4mmHg V21.39m/Axel Peak GR.8mmHg Pulmonic Valve V20.61m/s Tricuspid Valve TR Velocity1.93m/s [id number] LEFT VENTRICLE The Ejection Fraction is 35-45%. ATRIA The left atrial size is normal. The right atrium is mildly dilated. MITRAL VALVE The mitral valve is normal in structure and function. There is no mitral valve regurgitation noted. PULMONIC VALVE The pulmonic valve is not well visualized. TRICUSPID VALVE The tricuspid valve is grossly normal. There is trace tricuspid regurgitation. AORTIC VALVE The aortic valve is mildlysclerotic. GREAT VESSELS The aortic root is normal size. PERICARDIAL EFFUSION There is no pericardial effusion. Conclusion CONC LVH EF 50% MILD AV SCLEROSIS
== END | disposition home or self-care (01) ==
LOC: Rad HDHVI 09:47
PROVIDERS: ATTEND Internal Medicine Cardiovascular Disease
DX: I35.1 Nonrheumatic aortic (valve) insufficiency (principal); I51.7 Cardiomegaly; R00.1 Bradycardia, unspecified; R42 Dizziness and giddiness
CPT/HCPCS: 93306

== ENCOUNTER → 2024-02-29 | Outpatient (CLI) | payer BC ==
[2024-02-29 08:06] LABS: Basophils # (auto) 0 10 ^3/uL (0-0.2); Basophils % (auto) 0.7 % (0.0-2.0); Eosinophils # (auto) 0.8 10 ^3/uL (0-0.8); Eosinophils % (auto) 13.4 % (0.0-7.0); Hematocrit 42.7 % (41.0-53.0); Hemoglobin 14.4 g/dL (13.5-17.5); Lymphocytes # (auto) 1.6 10 ^3/uL (0.4-5.4); Lymphocytes % (auto) 25.7 % (10.0-50.0); Mean Corpuscular Hemoglobin 31.8 pg (28.0-32.0); Mean Corpuscular Hgb Conc. 33.7 g/dL (32.0-36.0); Mean Corpuscular Volume 94.3 fL (80.0-100.0); Monocytes # (auto) 0.6 10 ^3/uL (0-1.3); Monocytes % (auto) 9.6 % (0.0-12.0); Neutrophils # (auto) 3.1 10 ^3/uL (1.6-8.6); Neutrophils % (auto) 50.6 % (37.0-80.0); Nucleated Red Blood Cells % 0.2 %; Platelet Count (auto) 179 10^3/uL (140-450); Red Blood Cells 4.53 10^6/uL (4.5-5.90); Red Cell Distribution Width 14.1 % (11.8-14.3); White Blood Cell 6.1 10^3/uL (4.4-10.8)
[2024-02-29 08:26] LABS: Alanine Aminotransferase 19 U/L (7-40); Albumin 4.2 g/dL (3.2-4.8); Alkaline Phosphatase 89 U/L (46-116); Anion Gap 7 (5-15); Aspartate Aminotransferase 19 U/L (13-40); BUN/Creatinine Ratio 8.3 (10.0-20.0); Bilirubin, Total 0.6 mg/dL (0.2-1.0); Blood Urea Nitrogen 11 mg/dL (9-23); Calcium 10.4 mg/dL (8.7-10.4); Carbon Dioxide 27 mmol/L (20-31); Chloride 105 mmol/L (98-107); Cholesterol 208 mg/dL (< 200); Glucose 133 mg/dL (74-106); HDL Cholesterol 49 mg/dL (40-59); LDL Cholesterol 147 mg/dL (< 100); Potassium 4.5 mmol/L (3.5-5.1); Sodium 139 mmol/L (136-145); Triglycerides 140 mg/dL (< 150)
[2024-02-29 08:31] LABS: Urine Blood TRACE /uL (Negative); Urine Clarity Turbid (Clear); Urine Color Yellow (Yellow); Urine Protein, UAD 1+ (Negative); Urine Specific Gravity 1.018 (1.001-1.035); Urine Urobilinogen Normal (Negative)
[2024-02-29 09:20] LABS: Prostate Specific Antigen 0.36 ng/mL (0.0-4.0)
[2024-02-29 09:24] LABS: Free T4 (Free Thyroxine) 0.95 ng/dL (0.89-1.76)
== END | disposition home or self-care (01) ==
LOC: LAB 07:35
PROVIDERS: ATTEND Internal Medicine Cardiovascular Disease
DX: I10 Essential (primary) hypertension (principal); E11.9 Type 2 diabetes mellitus without complications; C61 Malignant neoplasm of prostate; E55.9 Vitamin D deficiency, unspecified; D64.9 Anemia, unspecified; D51.3 Other dietary vitamin B12 deficiency anemia; R00.2 Palpitations; R53.1 Weakness; R30.0 Dysuria
CPT/HCPCS: 36415; 80053; 80061; 81003; 83036; 84153; 84403; 84439; 84443; 85025

== ENCOUNTER → 2024-05-06 | Outpatient (CLI) | payer BC ==
[~2024-05-06] MED LIST changes: +CLOP75TA28 PO
[2024-05-06 08:45] VITALS: BP 97/54; PULSE 62; RESP 16; O2SAT 96
[2024-05-06 08:59] VITALS: BP 91/52; PULSE 60; RESP 16; O2SAT 96
--- NOTE | 2024-05-06 14:12 | DVH ---
XY CHEST TWO VIEWS ROUTINE CLINICAL HISTORY: PRE OP COMPARISON: XY CHEST TWO VIEWS ROUTINE on DOS: 01/10/24, XY CHEST TWO VIEWS ROUTINE on DOS: 01/08/24, XY CHEST TWO VIEWS ROUTINE on DOS: 06/30/22 TECHNIQUE: Frontal and lateral view of the chest was obtained FINDINGS: Lines and Tubes: Dual lead left-sided pacemaker. Lungs: No focal consolidation. Pleura: No effusion. No pneumothorax. Cardiomediastinal contours: Unremarkable Bones: No acute osseous abnormality. IMPRESSION: No acute cardiopulmonary disease.
== END | disposition home or self-care (01) ==
LOC: Rad HDHVI 08:39
PROVIDERS: ATTEND Internal Medicine Cardiovascular Disease
DX: Z01.818 Encounter for other preprocedural examination (principal); I50.1 Left ventricular failure, unspecified
CPT/HCPCS: 71046; 93005; G0463

== ENCOUNTER 2024-05-07 11:04 | Day surgery (SDC) | payer BC ==
[2024-05-06 10:51] LABS: Basophils # (auto) 0.1 10 ^3/uL (0-0.2); Basophils % (auto) 0.9 % (0.0-2.0); Eosinophils # (auto) 0.4 10 ^3/uL (0-0.8); Eosinophils % (auto) 5.8 % (0.0-7.0); Hematocrit 41.7 % (41.0-53.0); Hemoglobin 14.2 g/dL (13.5-17.5); Mean Corpuscular Hemoglobin 31.7 pg (28.0-32.0); Mean Corpuscular Hgb Conc. 34.1 g/dL (32.0-36.0); Monocytes # (auto) 0.5 10 ^3/uL (0-1.3); Monocytes % (auto) 8.1 % (0.0-12.0); Neutrophils # (auto) 3.3 10 ^3/uL (1.6-8.6); Neutrophils % (auto) 52.2 % (37.0-80.0); Platelet Count (auto) 212 10^3/uL (140-450); Red Blood Cells 4.48 10^6/uL (4.5-5.90); Red Cell Distribution Width 13.6 % (11.8-14.3); White Blood Cell 6.2 10^3/uL (4.4-10.8)
[2024-05-06 11:07] LABS: Partial Thromboplastin Time 26.6 SEC (24.5-34.5); Prothrombin Time 10.6 sec (9.3-11.8)
[2024-05-06 11:09] LABS: Potassium 4.8 mmol/L (3.5-5.1); Sodium 140 mmol/L (136-145)
[2024-05-06 11:10] LABS: Anion Gap 5 (5-15); Calcium 9.9 mg/dL (8.7-10.4); Carbon Dioxide 27 mmol/L (20-31)
[2024-05-06 11:15] LABS: BUN/Creatinine Ratio 11.9 (10.0-20.0); Blood Urea Nitrogen 16 mg/dL (9-23)
[2024-05-06 11:18] LABS: Chloride 108 mmol/L (98-107); Glucose 108 mg/dL (74-106)
[~2024-05-07] VITALS: Ht 167.6 cm; Wt 85.7 kg
[~2024-05-07 11:04] MED LIST changes: -METF-370 PO
[2024-05-07] MEDS ORDERED: IOHEXOL 350 MG/ML 100ML IJ ONE ×2 (11:42→12:36)
[2024-05-07] MEDS ORDERED: ANGIOMAX 250 MG VIAL IV ONE (11:59)
[2024-05-07] MEDS ORDERED: LIDOCAINE 2%HCL (LOCAL ANESTH.) INJ 20ML MDV ONE (11:59)
[2024-05-07] MEDS ORDERED: SODIUM CHL 0.9% 50 ML ONE (11:59)
[2024-05-07] MEDS ORDERED: MIDAZOLAM HCL 2MG/2ML 2ml VIAL (1mg/ml) ONE (11:59)
[2024-05-07] MEDS ORDERED: fentaNYL CITRATE 100 MCG/2 ML VL ONE (11:59)
[2024-05-07] MEDS ORDERED: CLOPIDOGREL BISULFATE 75 MG TAB ONE (13:06)
[2024-05-07] MEDS ORDERED: ASPirin 81 mg TAB ONE (13:06)
--- NOTE | 2024-05-07 14:44 | DVHDS ---
DATE OF DISCHARGE: 05/07/2024 DISCHARGE DIAGNOSES: * The patient underwent successful revascularization of the ostium of the ramus and obtuse marginal. * He will require further intervention of the distal LAD as well as first diagonal at a later date. The patient with ischemic cardiomyopathy, small vessel disease. He may benefit from EECP. Dual antiplatelet therapy will be initiated. We will continue to follow. The patient stable at the time of discharge. DISPOSITION: Home. ACTIVITY: As instructed. DIET: Will be 2 gram sodium diet. Abilio Montoya MD SA/WILLEM TID: [id number] RECEIPT: [id number]
--- NOTE | 2024-05-07 14:46 | DVHHP ---
ADMIT DATE: 05/07/2024 HISTORY OF PRESENT ILLNESS: The patient who is 78 years old who had a previous angiogram and was told that the patient is not a candidate for angioplasty and may not even be a candidate for coronary artery bypass grafting. There were conflicting reports on his chart concerning whether he is a candidate for either angioplasty or bypass surgery. Finally, the patient was sent to me for a second opinion. Reviewing the angiogram, I felt that the patient is a candidate for revascularization. Percutaneous revascularization is possible in this patient. He has aneurysmal anatomy but it is not prohibitive for intervention. Better images have to be obtained as well because the image quality on the angiogram was inadequate to make appropriate decision. The patient's ejection fraction is also markedly diminished, EF around 35%. The patient is now to undergo coronary angiography. PERTINENT MEDICAL HISTORY: Significant for hypertension, hyperlipidemia. REVIEW OF SYSTEMS: He denies any history of CVA. No seizure disorder. No history of any movement disorder. No history of any GI symptoms such as dysphagia, diarrhea, constipation, irritable bowel syndrome, or inflammatory bowel disease. Denies any hematemesis, hemoptysis, hematochezia. No bleeding diathesis. No melena as well. LUNG HISTORY: No history of any recent pneumonia. CARDIOVASCULAR HISTORY: Congestive heart failure, history of myocardial infarction. PHYSICAL EXAMINATION: VITAL SIGNS: Blood pressure is 130/90, pulse of 60, O2 saturation 95% on room air. HEENT: Pupils are reactive. Funduscopic exam is benign. Sclerae anicteric. No exudates noted. Tympanic membranes are negative. Oral mucosa moist. Posterior pharynx without any exudates. NECK: Supple. Carotid pulses are 2+ symmetrical. No nuchal rigidity appreciated. No cervical adenopathy. No supraclavicular adenopathy. PULMONARY: Clear to auscultation. Tympanic to percussion. CARDIOVASCULAR: Regular rate without S3 and without S4. PMI is not displaced. ABDOMEN: Soft. Nontender. Normal bowel sounds. NEUROLOGICAL: The patient is intact. EXTREMITIES: 1+ pulses bilaterally. Thus, the patient with coronary artery disease, ischemic cardiomyopathy, depressed left ventricular ejection fraction. The patient should undergo left heart catheterization following which we will attempt to revascularize as many vessels as possible and then the patient should undergo EECP treatment. We will continue to follow the patient. Abilio Montoya MD SA/KIERRA TID: [id number] RECEIPT: [id number]
--- NOTE | 2024-05-07 15:14 | DVHOP ---
DATE OF SURGERY: 05/07/2024 PROCEDURES PERFORMED: * Selective left and right coronary angiography. * Ventriculogram. * Shockwave thrombectomy of the ramus and obtuse marginal 2 to angioplasty with stent placement with a 3.0 x 15 mm Todd Garfield stent into the ramus ostium as well as angioplasty with stent placement with a 2.5 x 15 mm Fazal Garfield stent into the obtuse marginal 2. * Cath work of the left anterior descending artery, which is a fractional flow of the left anterior descending artery mid portion. Conscious sedation was also given. DESCRIPTION OF PROCEDURE: The patient was prepped and draped in a sterile condition. A 1% Xylocaine used to anesthetize the right groin. Using a Cook needle, the right femoral artery was engaged with Seldinger technique, a 6-Macedonian sheath in the right femoral artery. Using 6-Macedonian JL4 catheter and 6-Macedonian JR4 catheter, selective left and right coronary angiographies were performed. Using 6-Macedonian pigtail catheter, ventriculogram was done. Then, the 6-Macedonian diagnostic system was exchanged for a 6-Macedonian interventional system. Using a 6-Macedonian XB 3.5 guide catheter, the left main was cannulated. Using a ChoICE PT extra support wire, the ramus branch was then crossed. It was then predilated using a 2.0 x 15 mm Euphora balloon. Following that, a 3.0 x 12 mm thrombectomy shockwave device was used to angioplasty the ostium of the ramus. Then, a 3.0 x 15 mm Todd stent was then deployed across the ostium of the ramus branch at 14 atmospheres. There were no complications. The patient tolerated the procedure. Then, the ChoICE PT wire was then removed and introduced into the obtuse marginal 2 of the circumflex artery. It was then angioplastied using a 2.5 x 12 mm thrombectomy shockwave balloon catheter. Then, following the treatment, the patient had a 2.5 x 15 mm Todd stent deployed across the lesion at 14 atmospheres. There were no complications. The patient tolerated the procedure well. RESULTS: * Left main calcified. No flow restrictive lesion. * Left anterior descending artery. Moderate diffuse disease. In the mid portion, the patient had about a 40% narrowing. Cath work shows fractional flow reserve of 0.92. However, distal LAD has a subtotal narrowing that may require just balloon angioplasty at a later date. * First diagonal of the LAD has a 95% narrowing that will require intervention at a later date. * Ramus branch had a 95% narrowing of the ostium, status post thrombectomy with stent placement with a 3.0 x 15 mm Todd stent with less than 10% residual stenosis. * Circumflex. Moderate diffuse disease throughout; however, obtuse marginal 2 had an 80% narrowing, status post thrombectomy with shockwave thrombectomy followed by stent placement with a 2.0 x 15 mm Todd stent with less than 10% residual stenosis. * Right coronary artery large dominant vessel without any significant flow restrictive lesion. Moderate diffuse disease throughout however. Left ventricular function was diminished with an estimated EF around 35% with an LVEDP of 20 mmHg with no gradient across the aortic valve. Thus, the patient will require further intervention of the first diagonal as well as the distal LAD. * The patient underwent successful revascularization of the ostium of the ramus branch with stent placement. * Obtuse marginal 2 was also stented. * Right coronary artery without any significant restrictive lesions at this time. Abilio Montoya MD SA/AYLIN/KHOA TID: [id number] RECEIPT: [id number]
== END 2024-05-07 16:15 | disposition home or self-care (01) ==
LOC: CATH 11:04
PROVIDERS: ATTEND Internal Medicine Cardiovascular Disease
DX: I25.10 Atherosclerotic heart disease of native coronary artery without angina pectoris (principal); I50.1 Left ventricular failure, unspecified; E78.5 Hyperlipidemia, unspecified; I11.0 Hypertensive heart disease with heart failure; I25.2 Old myocardial infarction; I25.5 Ischemic cardiomyopathy; I50.9 Heart failure, unspecified; Z79.899 Other long term (current) drug therapy; Z98.890 Other specified postprocedural states; Z79.01 Long term (current) use of anticoagulants
CPT/HCPCS: 0523T; 36415; 80048; 85025; 85610; 85730; 92972; 92973; 93458; C1725; C1760; C1761; C1769; C1874; C1887; C1894; C9600; J0583; J1644; J2250; J3010; J7030; Q9967; 99152; 99153

== ENCOUNTER → 2024-05-20 | Outpatient (CLI) | payer BC ==
[2024-05-20 14:23] VITALS: BP_SYST 121; BP_SYST 128; BP_DIAS 68; BP_DIAS 85; PULSE 115; PULSE 67
== END | disposition home or self-care (01) ==
LOC: CHF HDHVI 08:53
PROVIDERS: ATTEND Internal Medicine Cardiovascular Disease
DX: I25.118 Atherosclerotic heart disease of native coronary artery with other forms of angina pectoris (principal); I50.23 Acute on chronic systolic (congestive) heart failure; I25.5 Ischemic cardiomyopathy; Z98.61 Coronary angioplasty status
CPT/HCPCS: G0166

== ENCOUNTER → 2024-05-21 | Outpatient (CLI) | payer BC ==
[2024-05-21 13:57] VITALS: BP_SYST 117; BP_DIAS 63; BP_DIAS 80; PULSE 60
== END | disposition home or self-care (01) ==
LOC: CHF HDHVI 10:30
PROVIDERS: ATTEND Internal Medicine Cardiovascular Disease
DX: I25.118 Atherosclerotic heart disease of native coronary artery with other forms of angina pectoris (principal); I50.23 Acute on chronic systolic (congestive) heart failure; I25.5 Ischemic cardiomyopathy; Z98.61 Coronary angioplasty status
CPT/HCPCS: G0166

== ENCOUNTER → 2024-05-22 | Outpatient (CLI) | payer BC ==
[2024-05-22 11:31] VITALS: BP 114/79; PULSE 60
[2024-05-22 11:32] VITALS: BP 122/80; PULSE 60
== END | disposition home or self-care (01) ==
LOC: CHF HDHVI 08:54
PROVIDERS: ATTEND Internal Medicine Cardiovascular Disease
DX: I25.118 Atherosclerotic heart disease of native coronary artery with other forms of angina pectoris (principal); I25.5 Ischemic cardiomyopathy; I50.23 Acute on chronic systolic (congestive) heart failure; Z98.61 Coronary angioplasty status; Z95.818 Presence of other cardiac implants and grafts
CPT/HCPCS: G0166

== ENCOUNTER → 2024-05-23 | Outpatient (CLI) | payer BC ==
[2024-05-23 10:35] VITALS: BP 118/80; PULSE 61
[2024-05-23 10:36] VITALS: BP 124/80; PULSE 60
== END | disposition home or self-care (01) ==
LOC: CHF HDHVI 08:52
PROVIDERS: ATTEND Internal Medicine Cardiovascular Disease
DX: I25.118 Atherosclerotic heart disease of native coronary artery with other forms of angina pectoris (principal); I25.5 Ischemic cardiomyopathy; I50.23 Acute on chronic systolic (congestive) heart failure; Z98.61 Coronary angioplasty status; Z95.818 Presence of other cardiac implants and grafts
CPT/HCPCS: G0166

== ENCOUNTER → 2024-05-24 | Outpatient (CLI) | payer BC ==
[2024-05-24 13:32] VITALS: BP_SYST 121; BP_SYST 126; BP_DIAS 78; BP_DIAS 80; PULSE 60
== END | disposition home or self-care (01) ==
LOC: CHF HDHVI 08:51
PROVIDERS: ATTEND Internal Medicine Cardiovascular Disease
DX: I25.118 Atherosclerotic heart disease of native coronary artery with other forms of angina pectoris (principal); I25.5 Ischemic cardiomyopathy; I50.23 Acute on chronic systolic (congestive) heart failure; Z98.61 Coronary angioplasty status
CPT/HCPCS: G0166

== ENCOUNTER → 2024-05-27 | Outpatient (CLI) | payer BC ==
[2024-05-27 11:14] VITALS: BP 118/80; PULSE 60
[2024-05-27 11:19] VITALS: BP 120/74; PULSE 66
== END | disposition home or self-care (01) ==
LOC: CHF HDHVI 08:50
PROVIDERS: ATTEND Internal Medicine Cardiovascular Disease
DX: I25.118 Atherosclerotic heart disease of native coronary artery with other forms of angina pectoris (principal); I50.23 Acute on chronic systolic (congestive) heart failure; I25.5 Ischemic cardiomyopathy; Z98.61 Coronary angioplasty status
CPT/HCPCS: G0166

== ENCOUNTER → 2024-05-29 | Outpatient (CLI) | payer BC ==
[2024-05-29 11:10] VITALS: BP_SYST 118; BP_SYST 126; BP_DIAS 76; BP_DIAS 78; PULSE 63; PULSE 65
== END | disposition home or self-care (01) ==
LOC: CHF HDHVI 08:51
PROVIDERS: ATTEND Internal Medicine Cardiovascular Disease
DX: I25.118 Atherosclerotic heart disease of native coronary artery with other forms of angina pectoris (principal); I50.23 Acute on chronic systolic (congestive) heart failure; I25.5 Ischemic cardiomyopathy; Z98.61 Coronary angioplasty status
CPT/HCPCS: G0166

== ENCOUNTER → 2024-06-03 | Outpatient (CLI) | payer BC ==
[2024-06-03 10:42] VITALS: BP_SYST 105; BP_SYST 119; BP_DIAS 70; BP_DIAS 85; PULSE 60
== END | disposition home or self-care (01) ==
LOC: CHF HDHVI 08:51
PROVIDERS: ATTEND Internal Medicine Cardiovascular Disease
DX: I25.118 Atherosclerotic heart disease of native coronary artery with other forms of angina pectoris (principal); I50.23 Acute on chronic systolic (congestive) heart failure; I25.5 Ischemic cardiomyopathy; Z98.61 Coronary angioplasty status
CPT/HCPCS: G0166

== ENCOUNTER → 2024-06-04 | Outpatient (CLI) | payer BC ==
[2024-06-04 10:35] VITALS: BP 128/80; PULSE 60
[2024-06-04 10:36] VITALS: BP 119/78; PULSE 60
== END | disposition home or self-care (01) ==
LOC: CHF HDHVI 08:53
PROVIDERS: ATTEND Internal Medicine Cardiovascular Disease
DX: I25.118 Atherosclerotic heart disease of native coronary artery with other forms of angina pectoris (principal); I50.23 Acute on chronic systolic (congestive) heart failure; I25.5 Ischemic cardiomyopathy; Z98.61 Coronary angioplasty status
CPT/HCPCS: G0166

== ENCOUNTER → 2024-06-05 | Outpatient (CLI) | payer BC ==
[2024-06-05 10:45] VITALS: BP 118/78; PULSE 60
[2024-06-05 10:46] VITALS: BP 113/84; PULSE 60
== END | disposition home or self-care (01) ==
LOC: CHF HDHVI 08:39
PROVIDERS: ATTEND Internal Medicine Cardiovascular Disease
DX: I25.118 Atherosclerotic heart disease of native coronary artery with other forms of angina pectoris (principal); I50.23 Acute on chronic systolic (congestive) heart failure; I25.5 Ischemic cardiomyopathy
CPT/HCPCS: G0166

== ENCOUNTER → 2024-06-06 | Outpatient (CLI) | payer BC ==
[2024-06-06 13:41] VITALS: BP_SYST 119; BP_SYST 121; BP_DIAS 70; BP_DIAS 80; PULSE 60
== END | disposition home or self-care (01) ==
LOC: CHF HDHVI 08:53
PROVIDERS: ATTEND Internal Medicine Cardiovascular Disease
DX: I25.118 Atherosclerotic heart disease of native coronary artery with other forms of angina pectoris (principal); I50.23 Acute on chronic systolic (congestive) heart failure; I25.5 Ischemic cardiomyopathy
CPT/HCPCS: G0166

== ENCOUNTER → 2024-06-07 | Outpatient (CLI) | payer BC ==
[2024-06-07 12:33] VITALS: BP_SYST 119; BP_SYST 120; BP_DIAS 70; BP_DIAS 80; PULSE 60; PULSE 62
== END | disposition home or self-care (01) ==
LOC: CHF HDHVI 09:20
PROVIDERS: ATTEND Internal Medicine Cardiovascular Disease
DX: I25.118 Atherosclerotic heart disease of native coronary artery with other forms of angina pectoris (principal); I25.5 Ischemic cardiomyopathy; I50.23 Acute on chronic systolic (congestive) heart failure
CPT/HCPCS: G0166

== ENCOUNTER → 2024-06-10 | Outpatient (CLI) | payer BC ==
[2024-06-10 15:23] VITALS: BP 124/80; PULSE 60
[2024-06-10 15:24] VITALS: BP 126/79; PULSE 60
== END | disposition home or self-care (01) ==
LOC: CHF HDHVI 08:50
PROVIDERS: ATTEND Internal Medicine Cardiovascular Disease
DX: I25.118 Atherosclerotic heart disease of native coronary artery with other forms of angina pectoris (principal); I50.23 Acute on chronic systolic (congestive) heart failure; I25.5 Ischemic cardiomyopathy; Z98.61 Coronary angioplasty status
CPT/HCPCS: G0166

== ENCOUNTER → 2024-06-12 | Outpatient (CLI) | payer BC ==
[2024-06-12 11:46] VITALS: BP 118/74; PULSE 61
[2024-06-12 11:47] VITALS: BP 122/81; PULSE 60
--- NOTE | 2024-06-13 11:49 | DVHHP ---
ADMIT DATE: 06/12/2024 HISTORY OF PRESENT ILLNESS: The patient is 78 years old history of coronary artery disease with angioplasty. The patient, however, has multivessel stenosis. He underwent successful revascularization of the right coronary artery and now needs revascularization of the ramus branch which has a 90% narrowing as well as the first diagonal branch has also a 90% narrowing. Furthermore, the patient had very sluggish flow, YOSI grade 2 flow, throughout. The vasculature consists of small vessel disease. PERTINENT MEDICAL HISTORY: Significant for: * Hypertension. * Hyperlipidemia. * History of coronary artery disease. History of angioplasty with stent placement. The patient's ejection fraction is also diminished at this time. Risks and benefits were explained to the patient. The patient understands and agrees. He denies any fever, chills, melena, hematochezia, hematemesis, hemoptysis, hematuria. Denies any GI symptoms such as GI bleeding. Denies any history of inflammatory bowel disease or irritable bowel syndrome. No liver disease. Creatinine is slightly elevated at 1.14. The patient, however, has no history of any syncope, no history of myocardial infarction. FAMILY HISTORY: Negative. SOCIAL HISTORY: Negative as well. PHYSICAL EXAMINATION: VITAL SIGNS: Blood pressure is 134/80, pulse 60 and regular, O2 saturation 98% on room air. HEENT: Pupils are reactive. Funduscopic exam shows no AV nicking. No exudates. No papilledema. Sclerae anicteric. Oral mucosa moist. Posterior pharynx without any exudate. NECK: No cervical adenopathy. No supraclavicular adenopathy. PULMONARY: Clear to auscultation, tympanic on percussion. No rhonchi. No wheezes. CARDIOVASCULAR: Regular rate. PMI is nondisplaced. ABDOMEN: Soft. Nontender. Normal bowel sounds. SKIN: Unremarkable. EXTREMITIES: Unremarkable. NEUROLOGICAL: The patient is intact. Thus, the patient with coronary artery disease now to undergo revascularization of the ramus and the diagonal branch which is a large caliber vessel. Left anterior descending artery and circumflex artery are YOSI grade 2 flow secondary to small vessel disease. Further recommendations after the angiogram and angioplasty. Abilio Montoya MD SA/KIERRA/AMANDA TID: [id number] RECEIPT: [id number]
== END | disposition home or self-care (01) ==
LOC: CHF HDHVI 08:55
PROVIDERS: ATTEND Internal Medicine Cardiovascular Disease
DX: I25.118 Atherosclerotic heart disease of native coronary artery with other forms of angina pectoris (principal); I50.23 Acute on chronic systolic (congestive) heart failure; I25.5 Ischemic cardiomyopathy; Z98.61 Coronary angioplasty status
CPT/HCPCS: G0166

== ENCOUNTER 2024-06-13 08:13 | Day surgery (SDC) | payer BC ==
[2024-06-11 14:13] LABS: Basophils # (auto) 0.1 10 ^3/uL (0-0.2); Basophils % (auto) 0.7 % (0.0-2.0); Eosinophils # (auto) 0.4 10 ^3/uL (0-0.8); Eosinophils % (auto) 4.8 % (0.0-7.0); Hematocrit 41.8 % (41.0-53.0); Hemoglobin 14.1 g/dL (13.5-17.5); Lymphocytes # (auto) 2.1 10 ^3/uL (0.4-5.4); Lymphocytes % (auto) 27.4 % (10.0-50.0); Mean Corpuscular Hemoglobin 31.9 pg (28.0-32.0); Mean Corpuscular Hgb Conc. 33.8 g/dL (32.0-36.0); Mean Corpuscular Volume 94.3 fL (80.0-100.0); Monocytes # (auto) 0.5 10 ^3/uL (0-1.3); Monocytes % (auto) 6.7 % (0.0-12.0); Neutrophils # (auto) 4.5 10 ^3/uL (1.6-8.6); Neutrophils % (auto) 60.4 % (37.0-80.0); Platelet Count (auto) 176 10^3/uL (140-450); Red Blood Cells 4.43 10^6/uL (4.5-5.90); Red Cell Distribution Width 13.8 % (11.8-14.3); White Blood Cell 7.5 10^3/uL (4.4-10.8)
[2024-06-11 14:21] LABS: INR 1.04 (0.9-1.15); Partial Thromboplastin Time 25.6 SEC (24.5-34.5)
[2024-06-11 14:24] LABS: Alanine Aminotransferase 10 U/L (7-40); Albumin 4.4 g/dL (3.2-4.8); Alkaline Phosphatase 88 U/L (46-116); Anion Gap 9 (5-15); Aspartate Aminotransferase 15 U/L (13-40); Bilirubin, Total 0.8 mg/dL (0.2-1.0); Blood Urea Nitrogen 21 mg/dL (9-23); Calcium 10.2 mg/dL (8.7-10.4); Carbon Dioxide 25 mmol/L (20-31); Potassium 4.9 mmol/L (3.5-5.1); Sodium 142 mmol/L (136-145); Total Protein 7.2 g/dL (5.7-8.2)
[2024-06-11 14:28] LABS: Chloride 108 mmol/L (98-107); Glucose 111 mg/dL (74-106)
[~2024-06-13] VITALS: Ht 167.6 cm; Wt 87.5 kg
[2024-06-13] VITALS (9 sets, daily range): BP systolic 92–159; BP diastolic 62–91; PULSE 60; RESP 13–16; O2SAT 94–98
[2024-06-13] MEDS ORDERED: LIDOCAINE 2%HCL (LOCAL ANESTH.) INJ 20ML MDV ONE (09:52)
[2024-06-13] MEDS ORDERED: IOHEXOL 350 MG/ML 100ML IJ ONE (09:53)
[2024-06-13] MEDS ORDERED: HEPARIN IN NS 1000Units/500mL 1,500 ML ONE (09:53)
[2024-06-13] MEDS ORDERED: ANGIOMAX 250 MG VIAL IV ONE ×2 (09:57→10:40)
[2024-06-13] MEDS ORDERED: fentaNYL CITRATE 100 MCG/2 ML VL ONE (09:57)
[2024-06-13] MEDS ORDERED: MIDAZOLAM HCL 2MG/2ML 2ml VIAL (1mg/ml) ONE (09:58)
[2024-06-13] MEDS ORDERED: SODIUM CHL 0.9% 50 ML ONE (10:40)
[2024-06-13] MEDS ORDERED: NITROGLYCERIN 0.4MG/DOSE SPRAY 4.9GM ONE (10:51)
[2024-06-13] MEDS ORDERED: CLOPIDOGREL BISULFATE 75 MG TAB ONE (10:55)
[2024-06-13] MEDS ORDERED: ASPirin 81 mg TAB ONE (10:56)
--- NOTE | 2024-06-13 11:53 | DVHOP ---
DATE OF SURGERY: 06/13/2024 PROCEDURES PERFORMED: * Selective left and right coronary angiography. * Ventriculogram. * Angioplasty with stent placement of the first diagonal with a 3.0 x 15 mm Fazal stent with thrombectomy of the vessel. Angioplasty with stent placement of the ramus proximally with a 3.0 x 15 mm Fazal stent with thrombectomy and shock wave treatment as well as FFR. There were no complications. The patient tolerated the procedure well. The patient had conscious sedation given as well and sublingual nitroglycerin during the course of the procedure. DESCRIPTION OF PROCEDURE: The patient was prepped and draped in the sterile conditions. 1% Xylocaine used to anesthetize the right groin. Using an XB 3.5 guide catheter, the left main was cannulated. Then, angiography was performed. Then, using a ChoICE PT extra support wire, the diagonal lesion was then crossed. It was then thrombectomized using a shock wave catheter with a 2.5 x 12 mm catheter. Following thrombectomy, a 3.0 x 15 mm [place] stent deployed across the lesion at 18 atmospheres. Then, a second wire was used to cannulate the ramus branch. Again, a ChoICE PT wire. It again was predilated using a shock wave 2.5 x 12 mm balloon thrombectomy device. Following that, a 3.0 x 15 mm stent was then deployed across the ramus branch at 18 atmospheres. There were no complications. The patient tolerated the procedure well. RESULTS: * Right coronary artery was patent. * Left anterior descending artery was patent with severe diffuse disease in the distal segment with YOSI grade 2 flow. * Diagonal of the LAD had a 99% narrowing status post angioplasty with thrombectomy and stent placement with a 3.0 x 15 mm [place] stent with less than 10% residual stenosis. * Circumflex mild diffuse disease, again YOSI grade 2 flow. * Ramus branch, large caliber vessel dominant in nature, has a 95% narrowing of the branch obtuse marginal 1 of the ramus branch. We had a 95% narrowing status post angioplasty with stent placement and thrombectomy with a 3.0 x 15 mm Fazal stent with less than 10% residual stenosis. * Right coronary artery mild intimal irregularity without any flow restrictive lesion. CONCLUSION: The patient has successful angioplasty of the first diagonal, ramus artery with thrombectomy. We will continue to follow the patient. Abilio Montoya MD SA/ARIANA TID: [id number] RECEIPT: [id number]
--- NOTE | 2024-06-13 12:26 | DVHDS ---
DATE OF DISCHARGE: 06/13/2024 DISCHARGE DIAGNOSES: The patient with ischemic cardiomyopathy status post successful angioplasty with stent placement of the ramus branch and angioplasty with stent placement of the large first diagonal. HOSPITAL COURSE: At this time, the patient is completely revascularized; however, LAD in territory, especially a severe diffuse disease in the distal segment with only YOSI grade 2 flow. The patient will benefit from long-term anticoagulation. EECP may be beneficial as well to improve collateral circulation. We will advise as such to the patient and we will make further recommendations after he sees his primary care. Abilio Montoya MD SA/ADAM/AJAY TID: [id number] RECEIPT: [id number]
== END 2024-06-13 14:09 | disposition home or self-care (01) ==
LOC: CATH 08:13
PROVIDERS: ATTEND Internal Medicine Cardiovascular Disease
DX: I25.10 Atherosclerotic heart disease of native coronary artery without angina pectoris (principal); I25.5 Ischemic cardiomyopathy; Z79.82 Long term (current) use of aspirin; Z79.899 Other long term (current) drug therapy; Z82.49 Family history of ischemic heart disease and other diseases of the circulatory system
CPT/HCPCS: 36415; 80053; 85025; 85610; 85730; 92972; 92973; 93454; C1725; C1760; C1769; C1874; C1887; C1894; C9600; J0583; J1644; J2250; J3010; Q9967; 99152; 99153

== ENCOUNTER → 2024-07-05 | Outpatient (CLI) | payer BC ==
[2024-07-05 10:47] VITALS: BP 134/80; PULSE 61
[2024-07-05 10:48] VITALS: BP 119/68; PULSE 62
== END | disposition home or self-care (01) ==
LOC: CHF HDHVI 08:46
PROVIDERS: ATTEND Internal Medicine Cardiovascular Disease
DX: I25.118 Atherosclerotic heart disease of native coronary artery with other forms of angina pectoris (principal); I50.23 Acute on chronic systolic (congestive) heart failure; I25.5 Ischemic cardiomyopathy
CPT/HCPCS: G0166

== ENCOUNTER → 2024-07-08 | Outpatient (CLI) | payer BC ==
[2024-07-08 14:02] VITALS: BP 134/70; PULSE 60
[2024-07-08 14:03] VITALS: BP 139/88; PULSE 62
== END | disposition home or self-care (01) ==
LOC: CHF HDHVI 09:57
PROVIDERS: ATTEND Internal Medicine Cardiovascular Disease
DX: I25.118 Atherosclerotic heart disease of native coronary artery with other forms of angina pectoris (principal); I50.23 Acute on chronic systolic (congestive) heart failure; I25.5 Ischemic cardiomyopathy; Z98.61 Coronary angioplasty status
CPT/HCPCS: G0166

== ENCOUNTER → 2024-07-09 | Outpatient (CLI) | payer BC ==
[2024-07-09 13:36] VITALS: BP 136/81; PULSE 60
[2024-07-09 13:37] VITALS: BP 126/81; PULSE 60
== END | disposition home or self-care (01) ==
LOC: CHF HDHVI 08:38
PROVIDERS: ATTEND Internal Medicine Cardiovascular Disease
DX: I25.118 Atherosclerotic heart disease of native coronary artery with other forms of angina pectoris (principal); I25.5 Ischemic cardiomyopathy; I50.23 Acute on chronic systolic (congestive) heart failure; Z98.61 Coronary angioplasty status
CPT/HCPCS: G0166

== ENCOUNTER → 2024-07-09 | Outpatient (CLI) | payer BC ==
[2024-07-09 08:07] LABS: Urine Blood Negative /uL (Negative); Urine Clarity Clear (Clear); Urine Color Light-Yellow (Yellow); Urine Protein, UAD Negative (Negative); Urine Specific Gravity 1.015 (1.001-1.035); Urine Urobilinogen Normal (Negative)
[2024-07-09 08:09] LABS: Alanine Aminotransferase 17 U/L (7-40); Albumin 4.3 g/dL (3.2-4.8); Alkaline Phosphatase 90 U/L (46-116); Anion Gap 7 (5-15); Aspartate Aminotransferase 15 U/L (13-40); BUN/Creatinine Ratio 15.4 (10.0-20.0); Blood Urea Nitrogen 18 mg/dL (9-23); Calcium 9.9 mg/dL (8.7-10.4); Carbon Dioxide 26 mmol/L (20-31); Chloride 105 mmol/L (98-107); Cholesterol 129 mg/dL (< 200); HDL Cholesterol 46 mg/dL (40-59); LDL Cholesterol 67 mg/dL (< 100); Potassium 4.3 mmol/L (3.5-5.1); Sodium 138 mmol/L (136-145); Triglycerides 100 mg/dL (< 150)
[2024-07-09 08:10] LABS: Bilirubin, Direct 0.3 mg/dL (<0.3); Bilirubin, Total 1.1 mg/dL (0.2-1.0); Glucose 115 mg/dL (74-106)
[2024-07-09 08:25] LABS: Basophils # (auto) 0 10 ^3/uL (0-0.2); Basophils % (auto) 0.4 % (0.0-2.0); Eosinophils # (auto) 0.4 10 ^3/uL (0-0.8); Eosinophils % (auto) 5.6 % (0.0-7.0); Hematocrit 41.1 % (41.0-53.0); Lymphocytes # (auto) 1.8 10 ^3/uL (0.4-5.4); Mean Corpuscular Hemoglobin 31.4 pg (28.0-32.0); Mean Corpuscular Volume 92.5 fL (80.0-100.0); Monocytes # (auto) 0.5 10 ^3/uL (0-1.3); Monocytes % (auto) 7.2 % (0.0-12.0); Neutrophils # (auto) 3.9 10 ^3/uL (1.6-8.6); Neutrophils % (auto) 59.8 % (37.0-80.0); Platelet Count (auto) 168 10^3/uL (140-450); Red Blood Cells 4.44 10^6/uL (4.5-5.90); Red Cell Distribution Width 14.1 % (11.8-14.3); White Blood Cell 6.6 10^3/uL (4.4-10.8)
== END | disposition home or self-care (01) ==
LOC: LAB 07:28
PROVIDERS: ATTEND Internal Medicine Cardiovascular Disease
DX: C61 Malignant neoplasm of prostate (principal); I10 Essential (primary) hypertension; E11.9 Type 2 diabetes mellitus without complications; E55.9 Vitamin D deficiency, unspecified; D64.9 Anemia, unspecified
CPT/HCPCS: 36415; 80048; 80061; 80076; 81003; 83036; 84153; 84403; 84443; 85025

== ENCOUNTER → 2024-07-10 | Outpatient (CLI) | payer BC ==
[2024-07-10 13:19] VITALS: BP 127/89; PULSE 60
[2024-07-10 13:21] VITALS: BP 123/78; PULSE 60
== END | disposition home or self-care (01) ==
LOC: CHF HDHVI 08:53
PROVIDERS: ATTEND Internal Medicine Cardiovascular Disease
DX: I25.118 Atherosclerotic heart disease of native coronary artery with other forms of angina pectoris (principal); I25.5 Ischemic cardiomyopathy; I50.23 Acute on chronic systolic (congestive) heart failure; Z98.61 Coronary angioplasty status
CPT/HCPCS: G0166

== ENCOUNTER → 2024-07-12 | Outpatient (CLI) | payer BC ==
[2024-07-12 12:58] VITALS: BP_SYST 124; BP_SYST 126; BP_DIAS 75; BP_DIAS 81; PULSE 60; PULSE 66
== END | disposition home or self-care (01) ==
LOC: CHF HDHVI 08:52
PROVIDERS: ATTEND Internal Medicine Cardiovascular Disease
DX: I25.118 Atherosclerotic heart disease of native coronary artery with other forms of angina pectoris (principal); I50.23 Acute on chronic systolic (congestive) heart failure; I25.5 Ischemic cardiomyopathy; Z98.61 Coronary angioplasty status
CPT/HCPCS: G0166

== ENCOUNTER → 2024-07-15 | Outpatient (CLI) | payer BC ==
[2024-07-15 14:41] VITALS: BP 126/84; PULSE 60
[2024-07-15 14:42] VITALS: BP 128/81; PULSE 61
== END | disposition home or self-care (01) ==
LOC: CHF HDHVI 08:59
PROVIDERS: ATTEND Internal Medicine Cardiovascular Disease
DX: I25.118 Atherosclerotic heart disease of native coronary artery with other forms of angina pectoris (principal); I25.5 Ischemic cardiomyopathy; I50.23 Acute on chronic systolic (congestive) heart failure; Z98.61 Coronary angioplasty status
CPT/HCPCS: G0166

== ENCOUNTER → 2024-07-16 | Outpatient (CLI) | payer BC ==
[2024-07-16 11:26] VITALS: BP 124/84; PULSE 61
[2024-07-16 11:27] VITALS: BP 122/64; PULSE 64
== END | disposition home or self-care (01) ==
LOC: CHF HDHVI 08:57
PROVIDERS: ATTEND Internal Medicine Cardiovascular Disease
DX: I25.118 Atherosclerotic heart disease of native coronary artery with other forms of angina pectoris (principal); I50.23 Acute on chronic systolic (congestive) heart failure; I25.5 Ischemic cardiomyopathy; Z98.61 Coronary angioplasty status
CPT/HCPCS: G0166

== ENCOUNTER → 2024-07-17 | Outpatient (CLI) | payer BC ==
[2024-07-17 12:46] VITALS: BP 127/82; PULSE 68
[2024-07-17 12:47] VITALS: BP 116/70; PULSE 64
== END | disposition home or self-care (01) ==
LOC: CHF HDHVI 08:55
PROVIDERS: ATTEND Internal Medicine Cardiovascular Disease
DX: I25.118 Atherosclerotic heart disease of native coronary artery with other forms of angina pectoris (principal); I25.5 Ischemic cardiomyopathy; I50.23 Acute on chronic systolic (congestive) heart failure; Z98.61 Coronary angioplasty status
CPT/HCPCS: G0166

== ENCOUNTER → 2024-07-18 | Outpatient (CLI) | payer BC ==
[2024-07-18 12:50] VITALS: BP 120/70; PULSE 60
[2024-07-18 12:51] VITALS: BP 123/81; PULSE 60
== END | disposition home or self-care (01) ==
LOC: CHF HDHVI 08:57
PROVIDERS: ATTEND Internal Medicine Cardiovascular Disease
DX: I25.118 Atherosclerotic heart disease of native coronary artery with other forms of angina pectoris (principal); I25.5 Ischemic cardiomyopathy; I50.23 Acute on chronic systolic (congestive) heart failure; Z98.61 Coronary angioplasty status
CPT/HCPCS: G0166

== ENCOUNTER → 2024-07-19 | Outpatient (CLI) | payer BC ==
[2024-07-19 10:16] VITALS: BP 124/80; PULSE 63
[2024-07-19 10:17] VITALS: BP 124/80; PULSE 63
== END | disposition home or self-care (01) ==
LOC: CHF HDHVI 08:53
PROVIDERS: ATTEND Internal Medicine Cardiovascular Disease
DX: I25.118 Atherosclerotic heart disease of native coronary artery with other forms of angina pectoris (principal); I25.5 Ischemic cardiomyopathy; I50.23 Acute on chronic systolic (congestive) heart failure; Z98.61 Coronary angioplasty status
CPT/HCPCS: G0166

== ENCOUNTER → 2024-07-23 | Outpatient (CLI) | payer BC ==
[2024-07-23 12:53] VITALS: BP 131/72; PULSE 60
[2024-07-23 12:54] VITALS: BP 125/84; PULSE 60
== END | disposition home or self-care (01) ==
LOC: CHF HDHVI 08:50
PROVIDERS: ATTEND Internal Medicine Cardiovascular Disease
DX: I25.118 Atherosclerotic heart disease of native coronary artery with other forms of angina pectoris (principal); I25.5 Ischemic cardiomyopathy; I50.23 Acute on chronic systolic (congestive) heart failure; Z98.61 Coronary angioplasty status
CPT/HCPCS: G0166

== ENCOUNTER 2024-07-24 08:49 | Outpatient (CLI) | payer BC ==
[2024-07-24 13:44] VITALS: BP 141/82; PULSE 60
[2024-07-24 13:46] VITALS: BP 143/80; PULSE 60
== END 2024-07-24 17:00 | disposition home or self-care (01) ==
LOC: CHF HDHVI 08:49
PROVIDERS: ATTEND Internal Medicine Cardiovascular Disease
DX: I25.118 Atherosclerotic heart disease of native coronary artery with other forms of angina pectoris (principal); I25.5 Ischemic cardiomyopathy; I50.23 Acute on chronic systolic (congestive) heart failure; Z98.61 Coronary angioplasty status
CPT/HCPCS: G0166

== ENCOUNTER 2024-07-26 08:53 | Outpatient (CLI) | payer BC ==
[2024-07-26 12:49] VITALS: BP 103/60; PULSE 65
[2024-07-26 12:50] VITALS: BP 107/70; PULSE 60
== END 2024-07-26 17:00 | disposition home or self-care (01) ==
LOC: CHF HDHVI 08:53
PROVIDERS: ATTEND Internal Medicine Cardiovascular Disease
DX: I25.118 Atherosclerotic heart disease of native coronary artery with other forms of angina pectoris (principal); I50.23 Acute on chronic systolic (congestive) heart failure; I25.5 Ischemic cardiomyopathy
CPT/HCPCS: G0166

== ENCOUNTER 2024-07-29 08:46 | Outpatient (CLI) | payer BC ==
[2024-07-29 14:16] VITALS: BP 121/71; PULSE 61
[2024-07-29 14:23] VITALS: BP 121/71; PULSE 60
== END 2024-07-29 17:00 | disposition home or self-care (01) ==
LOC: CHF HDHVI 08:46
PROVIDERS: ATTEND Internal Medicine Cardiovascular Disease
DX: I25.118 Atherosclerotic heart disease of native coronary artery with other forms of angina pectoris (principal); I25.5 Ischemic cardiomyopathy; I50.23 Acute on chronic systolic (congestive) heart failure; Z98.61 Coronary angioplasty status
CPT/HCPCS: G0166

== ENCOUNTER 2024-07-31 11:00 | Outpatient (CLI) | payer BC ==
[2024-07-31 13:17] VITALS: BP 130/84; PULSE 62
[2024-07-31 13:18] VITALS: BP 116/78; PULSE 64
== END 2024-07-31 17:00 | disposition home or self-care (01) ==
LOC: CHF HDHVI 11:00
PROVIDERS: ATTEND Internal Medicine Cardiovascular Disease
DX: I25.118 Atherosclerotic heart disease of native coronary artery with other forms of angina pectoris (principal); I50.23 Acute on chronic systolic (congestive) heart failure; I25.5 Ischemic cardiomyopathy
CPT/HCPCS: G0166

== ENCOUNTER 2024-08-01 08:29 | Outpatient (CLI) | payer BC ==
[2024-08-01 11:04] VITALS: BP_SYST 125; BP_SYST 131; BP_DIAS 72; BP_DIAS 80; PULSE 62
== END 2024-08-01 17:00 | disposition home or self-care (01) ==
LOC: CHF HDHVI 08:29
PROVIDERS: ATTEND Internal Medicine Cardiovascular Disease
DX: I25.118 Atherosclerotic heart disease of native coronary artery with other forms of angina pectoris (principal); I50.23 Acute on chronic systolic (congestive) heart failure; I25.5 Ischemic cardiomyopathy; Z86.73 Personal history of transient ischemic attack (TIA), and cerebral infarction without residual deficits; Z98.61 Coronary angioplasty status
CPT/HCPCS: G0166

== ENCOUNTER 2024-08-02 08:34 | Outpatient (CLI) | payer BC ==
[2024-08-02 13:54] VITALS: BP 121/78; PULSE 62
[2024-08-02 13:55] VITALS: BP 119/68; PULSE 60
== END 2024-08-02 17:00 | disposition home or self-care (01) ==
LOC: CHF HDHVI 08:34
PROVIDERS: ATTEND Internal Medicine Cardiovascular Disease
DX: I25.118 Atherosclerotic heart disease of native coronary artery with other forms of angina pectoris (principal); I50.23 Acute on chronic systolic (congestive) heart failure; I25.5 Ischemic cardiomyopathy; Z98.61 Coronary angioplasty status
CPT/HCPCS: G0166

== ENCOUNTER 2025-01-17 07:57 | Outpatient (CLI) | payer BC ==
[2025-01-17 08:34] LABS: Anion Gap 8 (5-15); Carbon Dioxide 27 mmol/L (20-31); Chloride 107 mmol/L (98-107); Potassium 4.7 mmol/L (3.5-5.1); Sodium 142 mmol/L (136-145)
[2025-01-17 08:35] LABS: Calcium 9.6 mg/dL (8.7-10.4)
[2025-01-17 08:40] LABS: BUN/Creatinine Ratio 14.8 (10.0-20.0); Blood Urea Nitrogen 17 mg/dL (9-23)
[2025-01-17 08:44] LABS: Glucose 121 mg/dL (74-106)
[2025-01-17 09:08] LABS: Microalb/Creat Ratio, Urine 21.0
== END 2025-01-17 17:00 | disposition home or self-care (01) ==
LOC: LAB 07:57
PROVIDERS: ATTEND Internal Medicine
DX: E11.9 Type 2 diabetes mellitus without complications (principal)
CPT/HCPCS: 36415; 80048; 82043; 82570